=== PATIENT | female | born 1960 | race Caucasian/White ===

== ENCOUNTER 2016-06-22 11:44 | Outpatient (CLI) | payer BC ==
[2016-06-22 16:42] LABS: ALT (SGPT) 391 U/L (0-55); AST (SGOT) 116 U/L (5-34); Alkaline Phosphatase 148 U/L (40-150); Anion Gap 15 mmol/L (10-20); BUN (Urea Nitrogen) 15 mg/dL (9.8-20.1); Bilirubin, Total 2.1 mg/dL (0.2-1.2); Calc. Creatinine Clearance 0 mL/min (70-130); Calcium 9.7 mg/dL (7.8-10.44); Carbon Dioxide 27 mmol/L (22-29); Chloride 105 mmol/L (98-107); Estimated GFR-MDRD 85; Globulin 3.1 g/dL (2.4-3.5); LDL Cholesterol, Calculated 113 mg/dL; Protein, Total 7.4 g/dL (6.0-8.3)
[2016-06-22 16:47] LABS: #Basophils 0.1 thou/uL (0.0-0.2); #Eosinphils 0.2 thou/uL (0.0-0.7); #Lymphocytes 1.8 thou/uL (1.20-3.40); #Monocytes 0.4 thou/uL (0.11-0.59); #Neutrophils 4.9 thou/uL (1.40-6.50); %Basophils 1.5 % (0.0-1.0); %Eosinophils 2.8 % (0.0-10.0); %Monocytes 5.1 % (0.0-10.0); Hematocrit 44.2 % (36.0-47.0); Mean Platelet Volume 8.2 fL (7.4-10.4); Red Blood Cell (RBC) Count 4.82 mill/uL (4.20-5.40); White Blood Cell (WBC) Count 7.4 thou/uL (4.8-10.8)
[2016-06-22 17:03] LABS: Hemoglobin A1c 4.8 % (4.0-6.0)
== END 2016-06-22 11:45 | disposition home or self-care (01) ==
LOC: LABLEX 11:44
PROVIDERS: ATTEND Family Medicine
DX: E78.5 Hyperlipidemia, unspecified (principal); E78.1 Pure hyperglyceridemia; I10 Essential (primary) hypertension; E87.6 Hypokalemia; E66.01 Morbid (severe) obesity due to excess calories; R73.09 Other abnormal glucose
CPT/HCPCS: 80053; 80061; 83036; 84443; 85025

== ENCOUNTER 2016-06-22 14:21 | Outpatient (CLI) | payer BC | END 2016-06-22 14:22 | LOC: LABLEX 14:21 | PROVIDERS: ATTEND Family Medicine | DX: R39.89 Other symptoms and signs involving the genitourinary system (principal) | CPT/HCPCS: 87086 ==

== ENCOUNTER 2016-06-24 08:31 | Outpatient (CLI) | payer BC ==
--- NOTE | 2016-06-24 18:22 | ULT ---
RIGHT UPPER QUADRANT ULTRASOUND: Date: 06/24/16 Ultrasonography of the right upper quadrant was performed for evaluation of abdominal pain. FINDINGS: The gallbladder contains multiple small gallstones. The wall is mildly thick at 3.0 mm. The common b ile duct is borderline enlarged at 6-7 mm. No stones were seen within the visible portions of the du ct, though all portions could not be imaged. The liver was 16.0 cm in oblique sagittal length, which is borderline. Internally, no space-occupying disease or dilated ducts were present. Portal venous flow was towards the liver as expected. The pancreas appears normal. The right kidney appears normal and was 10.3 cm long. IMPRESSION: Multiple gallstones. Borderline size of common bile duct (6-7 mm). CODE T. POS: HOME
== END 2016-06-24 08:32 | disposition home or self-care (01) ==
LOC: BURULT 08:31
PROVIDERS: ATTEND Family Medicine
DX: R10.11 Right upper quadrant pain (principal); R63.4 Abnormal weight loss; K80.20 Calculus of gallbladder without cholecystitis without obstruction
CPT/HCPCS: 76705

== ENCOUNTER 2016-09-17 12:23 | Emergency (ER) | payer BC ==
[2016-09-17 12:54] LABS: #Basophils 0.1 thou/uL (0.0-0.2); #Eosinphils 0.1 thou/uL (0.0-0.7); #Lymphocytes 1.4 thou/uL (1.20-3.40); #Monocytes 0.4 thou/uL (0.11-0.59); #Neutrophils 4.6 thou/uL (1.40-6.50); %Basophils 1.1 % (0.0-1.0); %Eosinophils 1.4 % (0.0-10.0); %Lymphocytes 21.9 % (21.0-51.0); %Monocytes 5.3 % (0.0-10.0); %Neutrophils 70.3 % (42.0-75.0); Hemoglobin 13.9 g/dL (12.0-16.0); Mean Corpuscular HGB CONC 33.5 g/dL (32.0-36.0); Mean Corpuscular Hemoglobin 30.6 pg (27.0-31.0); Mean Corpuscular Volume 91.4 fl (81.0-99.0); Mean Platelet Volume 9.6 fL (7.4-10.4); Platelet Count 151 thou/uL (130-400); RBC Distribution Width 12.7 % (11.5-14.5); Red Blood Cell (RBC) Count 4.56 mill/uL (4.20-5.40); White Blood Cell (WBC) Count 6.6 thou/uL (4.8-10.8)
[2016-09-17 13:11] LABS: ALT (SGPT) 14 U/L (8-55); AST (SGOT) 17 U/L (5-34); Albumin 3.9 g/dL (3.5-5.0); Alkaline Phosphatase 42 U/L (40-150); Anion Gap 13 mmol/L (10-20); BUN (Urea Nitrogen) 20 mg/dL (9.8-20.1); Bilirubin, Total 2.2 mg/dL (0.2-1.2); Calc. Creatinine Clearance 0 mL/min (70-130); Calcium 9.3 mg/dL (7.8-10.44); Carbon Dioxide 25 mmol/L (22-29); Chloride 108 mmol/L (98-107); Estimated GFR-MDRD 81; Globulin 2.9 g/dL (2.4-3.5); Glucose 101 mg/dL (70-105); Potassium 3.5 mmol/L (3.5-5.1); Protein, Total 6.8 g/dL (6.0-8.3); Sodium 142 mmol/L (136-145)
[2016-09-17] MEDS ORDERED: Adacel (T-DAP) 0.5 ML VIAL ONE (13:17)
--- NOTE | 2016-09-17 13:19 | CT ---
CT BRAIN WITHOUT CONTRAST HISTORY: Syncope. FINDINGS: No evidence of acute infarct, hemorrhage, midline shift, or abnormal extraaxial fluid collections is seen. The ventricular size is normal, and the basilar cisterns are patent. The bony calvarium is intact. The visualized paranasal sinuses and mastoid air cells are well aerated. A soft tissue con tusion is seen in the right posterior parietal scalp, close to the vertex. IMPRESSION: No CT evidence of acute intracranial process. POS: [facility]
== END 2016-09-17 14:01 | disposition home or self-care (01) ==
LOC: BURERS 12:23
DX: R55 Syncope and collapse (principal); S00.01XA Abrasion of scalp, initial encounter; I10 Essential (primary) hypertension; Z79.899 Other long term (current) drug therapy; X58.XXXA Exposure to other specified factors, initial encounter
CPT/HCPCS: 70450; 80053; 85025; 90471; 90715; 93005; 96360

== ENCOUNTER 2016-11-08 11:32 | Outpatient (CLI) | payer BC ==
[2016-11-08 16:49] LABS: ALT (SGPT) 15 U/L (8-55); AST (SGOT) 21 U/L (5-34); Albumin 4.3 g/dL (3.5-5.0); Alkaline Phosphatase 52 U/L (40-150); Anion Gap 13 mmol/L (10-20); BUN (Urea Nitrogen) 25 mg/dL (9.8-20.1); Bilirubin, Total 1.7 mg/dL (0.2-1.2); Calc. Creatinine Clearance 0 mL/min (70-130); Calcium 9.6 mg/dL (7.8-10.44); Carbon Dioxide 28 mmol/L (22-29); Chloride 108 mmol/L (98-107); Estimated GFR-MDRD 82; Globulin 2.7 g/dL (2.4-3.5); Glucose 91 mg/dL (70-105); Potassium 4.8 mmol/L (3.5-5.1); Sodium 144 mmol/L (136-145)
== END 2016-11-08 11:33 | disposition home or self-care (01) ==
LOC: LABLEX 11:32
PROVIDERS: ATTEND Family Medicine
DX: E87.6 Hypokalemia (principal); I10 Essential (primary) hypertension; R74.8 Abnormal levels of other serum enzymes
CPT/HCPCS: 80053